=== PATIENT | male | born 1955 | race Caucasian/White ===

== ENCOUNTER 2021-06-25 06:25 | Outpatient (CLI) | payer OTHER, SELFPAY ==
--- NOTE | 2021-06-25 06:41 | USCV_ITS ---
Ede Desai Age: 66 Gender: M : 1955 Exam Date: 06/25/2021 07:29 Ordering Phys: Khoa Parker MD ([email or web address]) Technologist: EDIE [place] [facility] [place]: COPD + VERY SOB W/ INTERMITTENT CHEST PAIN X6 MONTHS NO HX OF CARDIAC INTERVENTION BP: / HR: 57 Rhythm: Sinus Technical Quality: Adequate MEASUREMENTS (Male / Female) Normal Values 2D ECHO LV Diastolic Diameter PLAX 3.5 cm 4.2 - 5.9 / 3.9 - 5.3 cm LV Systolic Diameter PLAX 2.4 cm IVS Diastolic Thickness 1.1 cm 0.6 - 1.0 / 0.6 - 0.9 cm IVS Systolic Thickness 1.2 cm LVPW Diastolic Thickness 1.3 cm 0.6 - 1.0 / 0.6 - 0.9 cm LVPW Systolic Thickness 1.5 cm LVOT Diameter 1.9 cm LV Ejection Fraction 2D Teich 60.3 % LV Ejection Fraction MOD 2C 62.0 % LV Ejection Fraction 2C AL 62.4 % LA Diameter 3.7 cm LA Width 2.5 cm LA Height 4.4 cm RA Width 3.1 cm RA Height 5.1 cm Aorta at Sinotubular Diameter 3.1 cm M-MODE Aortic Annulus Diameter 3.4 cm LA Ao Ratio MM 1.4 MV E Point Septal Separation 0.6 cm DOPPLER AV Peak Velocity 114.0 cm/s LVOT Peak Velocity 91.0 cm/s AV Area Cont Eq vti 2.6 cm squared AV Area Cont Eq pk 2.2 cm squared MV Peak Velocity 136.0 cm/s MV Area PHT 2.5 cm squared Mitral E to A Ratio 0.6 MV E' Velocity 38.2 cm/s Mitral E to MV E' Ratio 12.0 Mitral E to LV E' Lateral Ratio 9.4 Mitral E to LV E' Septal Ratio 16.9 TR Peak Velocity 267.0 cm/s TR Peak Gradient 28.5 mmHg Right Atrial Pressure 5.0 mmHg Pulmonary Artery Systolic Pressu 33.5 mmHg PV Peak Velocity 87.0 cm/s RV Acceleration Time 0.1 s RV Ejection Time 0.4 s RV AcT/ET 0.2 FINDINGS Left Ventricle Normal left ventricular cavity size. Normal left ventricular systolic function. No regional wall motion abnormalities. Left ventricular ejection fraction is estimated at 60 %. Grade I/IV diastolic dysfunction (abnormal relaxation filling pattern), normal to mildly elevated filling pressures. Right Ventricle The right ventricle is normal in size and function. Right Atrium The right atrium is normal in size. Left Atrium The left atrium is normal in size. Mitral Valve Moderately thickened mitral valve. No mitral valve stenosis. Mild mitral valve regurgitation. Aortic Valve Moderate aortic valve calcification. No aortic valve stenosis. Trace aortic valve regurgitation. Tricuspid Valve Mild tricuspid valve regurgitation. Pulmonic Valve Structurally normal pulmonic valve without significant stenosis. There is no pulmonic regurgitation. Pericardium Normal pericardium without effusion. Aorta Normal ascending aorta dimension. CONCLUSIONS 1-Normal left ventricular cavity size. Normal left ventricular systolic function. No regional wall motion abnormalities. Left ventricular ejection fraction is estimated at 60 %. Grade I/IV diastolic dysfunction (abnormal relaxation filling pattern), normal to mildly elevated filling pressures. 2-Moderate aortic valve calcification. No aortic valve stenosis. Trace aortic valve regurgitation. 3-Moderately thickened mitral valve. No mitral valve stenosis. Mild mitral valve regurgitation. 4-There is no pericardial effusion. 5-Pulmonary artery systolic pressure is within normal limits. 6-Right atrial pressure is around 5 mm of mercury. 7-There are no prior echocardiogram studies to compare. Khoa Parker MD (Electronically Signed) Final Date: 25 June 2021 18:08 S
[2021-06-25 07:04] VITALS: BMI 25.8
--- NOTE | 2021-06-25 07:05 | ECG_ITS ---
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 The perfusion scan will be documented separately. DATA: Baseline heart rate was 58 beats per minute. Baseline blood pressure was 131/80 millimeters of mercury. Target heart rate was 152. Maximum heart rate achieved was 76. which was 50 % of the predicted target heart rate. Maximum blood pressure was 141/81 millimeters of mercury. The reason for ending the test was completion of the protocol. The patient did not experience any symptoms. ELECTROCARDIOGRAM: BASELINE: Sinus rhythm. Normal axis. Otherwise, no ST-T changes suggestive of ischemia noted. No arrhythmia noted. EXERCISE: After Lexiscan injection, no ST-T changes suggestive of ischemic noted. No arrhythmia noted. CONCLUSION: Please note due to baseline abnormality of the EKG specificity and sensitivity of the EKG portion of LexiScan MIBI stress test will be low 1. EKG not suggestive of ischemia 2. Lexiscan injection unremarkable. 3. Perfusion scan will be documented separately. Electronically Signed On 06-25-2021 20:21:28 SURG NURSE by KHOA PARKER [id number]
--- NOTE | 2021-06-25 07:05 | NMCV_ITS ---
NM luis perf SPECT r/s* [id number] Ede Desai Age: 66 Gender: M : 1955 Exam Date: 06/25/2021 08:07 Ordering Phys: Khoa Parker MD ([email or web address]) Technologist: KATEY Abdullahi Exam Location: [facility] [address] Indications: CHEST PAIN STRESS TEST Please see separate stress test report in [facility] for full findings IMAGE PROTOCOL Rest/Stress 1 Lexiscan Day Radiopharmaceutical Dose (mCi) Administration Site Administered by Rest: Tc-99m 10.6 IV KATEY Li Sestamibi Stress:Tc-99m 32.9 IV KATEY Li Sestamibi Rest: 25-Jun-2021 60 Discovery 630 Stress: 25-Jun-2021 30 Discovery 630 0.4mg Lexiscan. Images obtained in supine and prone position. SPECT RESULTS Technical Quality: Excellent Raw Data Analysis: Normal Image Corrections: No attenuation or motion correction applied Summed Stress Score: 1 Summed Rest Score: 2 Summed Difference Score: 0 PERFUSION FINDINGS SPECT images demonstrate homogeneous tracer distribution throughout the myocardium. FUNCTIONAL RESULTS (calculated via Gated SPECT) Stress Image LV EF (%): 69 Stress EDV (mL):74 TID: 1.08 Stress ESV (mL):23 Rest Image LV EF (%): 69 FUNCTIONAL FINDINGS: There is normal left ventricular systolic function. IMPRESSIONS Myocardial perfusion imaging is normal. EKG segment will be documented separately. Khoa Parker MD (Electronically Signed) Final Date: 25 June 2021 17:56 S
[2021-06-25] MEDS: regadenoson 0.4 Mg/5 ml Syringe IVP (09:03)
[2021-06-25 09:17] VITALS: BP 132/72; PULSE 67
== END 2021-06-25 06:26 | disposition home or self-care (01) ==
PROVIDERS: PCP Family Medicine; Visit Provider Internal Medicine Cardiovascular Disease
DX: R07.9 Chest pain, unspecified (principal); I08.0 Rheumatic disorders of both mitral and aortic valves
CPT/HCPCS: 78452; 93017; 93306; A9500; J2785

== ENCOUNTER → 2021-12-11 10:07 | Outpatient (BNVA) | payer OTHER, SELFPAY | PROVIDERS: PCP Family Medicine; Visit Provider Internal Medicine Critical Care Medicine | DX: J44.9 Chronic obstructive pulmonary disease, unspecified (principal); J96.11 Chronic respiratory failure with hypoxia; J98.4 Other disorders of lung; Z99.81 Dependence on supplemental oxygen | CPT/HCPCS: 99204 ==

== ENCOUNTER 2021-12-15 06:20 | Day surgery (SDC) | payer OTHER, SELFPAY ==
[2021-12-11 14:28] VITALS: BMI 25.0
[2021-12-15] VITALS (8 sets, daily range): BP systolic 112–144; BP diastolic 51–74; PULSE 50–64; RESP 16–20; TEMP 36.1–36.2; O2SAT 92–100
--- NOTE | 2021-12-15 | CT_ITS ---
Guided Bronchoscopy Planning CT images; total exam DLP: 1044.58 mGy-cm MTDD
--- NOTE | 2021-12-15 07:09 | ECG_ITS ---
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 Measurements Intervals [place] Rate: 51 P: 11 NC: 159 QRS: 35 QRSD: 89 T: 29 QT: 428 QTc: 397 Interpretive Statements SINUS BRADYCARDIA No previous ECG available for comparison Electronically Signed On 12-15-2021 17:35:00 CDT by Parmjit Webster M.D. [id number]
[2021-12-15] MEDS: sodium chloride 0.9% 1,000 ML 30 ML IV (07:19)
--- NOTE | 2021-12-15 08:33 | W.PM.OPSUD ---
Surgery/Procedure H&P Update DATE OF PROCEDURE: December 15, 2021 DATE H&P PERFORMED: 12/11/21 CHANGES TO PREVIOUS DOCUMENTATION: None PREOP DIAGNOSIS: Suspected lung cancer PLANNED PROCEDURE: Bronchoscopy with inspection of the airway, possible endobronchial biopsy, bronchoalveolar lavage, additional bronchoscopy guided transbronchial biopsies of the right upper lobe lung mass, fine-needle aspiration, endobronchial sound guided transbronchial needle aspiration of lymph nodes and control of bleeding. Operation Date: 12/15/21 08:20 Proposed Procedures p Navigational bronch, ebus, 44780, 46138, 81579, 45487, 52704,R91.1(Not Applicable) - Carla Lemos MD s Bronchoscopy(Not Applicable) - Carla Lemos MD
--- NOTE | 2021-12-15 08:38 | P.ANESASSM_ITS ---
Pre-Anesthetic Assessment Height/Weight: Height 1.7 m Weight 72.575 kg Temp Pulse Resp BP Pulse Ox 97.1 F L 64 20 H 112/74 98 12/15/21 06:56 12/15/21 06:56 12/15/21 06:56 12/15/21 06:56 12/15/21 06:56 Preop Diagnosis: Suspected lung cancer Operation Date: 12/15/21 08:20 Proposed Procedures p Navigational bronch, ebus, 04849, 12327, 54740, 25233, 07336,R91.1(Not Applicable) - Carla Lemos MD s Bronchoscopy(Not Applicable) - Carla Lemos MD Familial anesthetic complications: none Was Beta Owen taken within 24 hours: N/A Was Clonidine taken within 24 hours: N/A Last intake: Intake Last Liquid Date 12/14/21 Last Liquid Time 20:30 Last Solid Date 12/14/21 Last Solid Time 18:00 Social No alcohol and No tobacco Exam alert, oriented x 3, clear to auscultation bilaterally and regular rate & rhythm Airway Submandibular: Other (Less than 2 finger ) Cervical ROM: Other (Limited extension ) Mallampati: Class III Dentition: chipped Pulmonary Chronic Obstructive Pulmonary Disease Chronic respiratory failure CV/HEM Hypertension METS < 4 Denies hx of CP, CAD Nuc Med 06/27 ?IMPRESSIONS ?Myocardial perfusion imaging is normal.? EKG segment will be documented ?separately. Stress Test 06/25/21 CONCLUSION: Please note due to baseline abnormality of the EKG specificity and sensitivity of the EKG portion of LexiScan MIBI stress test will be low 1.? EKG not suggestive of ischemia 2.? Lexiscan injection unremarkable. 3.? Perfusion scan will be documented separately. Electronically Signed On 06-25-2021 20:21:28 FEE CLERK by FIDECNIO HEBERT [id number] [id number] 06/25/21 CONCLUSIONS ?1-Normal left ventricular cavity size. Normal left ventricular ?systolic function. No regional wall motion abnormalities. Left ?ventricular ejection fraction is estimated at 60 %. Grade I/IV ?diastolic dysfunction (abnormal relaxation filling pattern), ?normal to mildly elevated filling pressures. ?2-Moderate aortic valve calcification. No aortic valve stenosis. ?Trace aortic valve regurgitation. ?3-Moderately thickened mitral valve. No mitral valve stenosis. ?Mild mitral valve regurgitation. ?4-There is no pericardial effusion. ?5-Pulmonary artery systolic pressure is within normal limits. ?6-Right atrial pressure is around 5 mm of mercury. ?7-There are no prior echocardiogram studies to compare. None reported Hepatic None reported GI Gastroesophageal Reflux Disease (Well controlled ) Metabolic Pre diabetic Musc/skel Osteoarthritis/DJD Neuropsych Cerebrovascular Accident (Persistent deficit ) Anesthetic Plan ASA status: 3 Anesthesia: Anesthesia Evaluation and General Other: We discussed risk and benefits of general anesthesia including PONV, sore throat (sometimes severe), corneal abrasion, positioning and peripheral nerve injuries, life threatening allergic reaction, post operative ICU admission requiring prolonged intubation, aspiration, stroke, heart attack, , and rare incide nces of recall. Patient consents to proceed with general anesthesia. Risk of > 500 ml blood loss (7ml/kg in children): No Medications/Allergies Home Medications Medication Instructions Recorded Confirmed Last Taken Type albuterol sulfate 90 mcg/actuation 2 puff INHALATION Q6H PRN 04/29/21 12/11/21 0 12/14/21 History aerosol inhaler aspirin 81 mg tablet,delayed 81 mg PO DAILY 04/29/21 12/11/21 12/14/21 History release (Adult Low Dose Aspirin) atorvastatin 80 mg tablet 80 mg PO DAILY 04/29/21 12/11/21 12/14/21 History cholecalciferol (vitamin D3) 25 25 mcg PO DAILY 04/29/21 12/11/21 12/14/21 History mcg (1,000 unit) capsule fluticasone 100 mcg-salmeterol 50 1 inh INHALATION BID 04/29/21 12/11/21 12/14/21 History mcg/dose blistr powdr for inhalation glucosamine-chondroitin 500 mg-400 1 cap PO DAILY 04/29/21 12/11/21 Unknown History mg capsule isosorbide mononitrate 30 mg 15 mg PO BID #90 tab 04/29/21 12/15/21 12/15/21 Rx tablet,extended release 24 hr lisinopril 20 mg tablet 10 mg PO DAILY tab 04/29/21 12/11/21 12/14/21 History magnesium oxide 250 mg PO DAILY 04/29/21 12/11/2112/14/22 History nitroglycerin 0.4 mg sublingual 0.4 mg SUBLINGUAL Q5M PRN #25 tab 04/29/21 12/11/21 Unknown Rx tablet (Nitrostat) tiotropium bromide 2.5 2 inh INHALATION QAM 04/29/21 12/11/21 12/14/21 History mcg/actuation mist for inhalation zinc 50 mg tablet 50 mg PO DAILY 04/29/21 12/11/21 Unknown History trazodone 100 mg tablet 100 mg PO DAILY PRN tab 12/11/21 12/11/21 12/14/21 History albuterol sulfate 2.5 mg (3 mL) INHALATION QID PRN 12/14/21 12/14/21 12/14/21 Rx #90 ml Allergies Allergy/AdvReac Type Severity Reaction Status Date / Time No Known Allergies Allergy Verified 12/11/21 12:31 Current Medications Generic Name Dose Route Start Last Admin Trade Name Freq PRN Reason Stop Dose Admin Sodium Chloride 1,000 mls @ 30 mls/hr 12/15/21 06:45 12/15/21 07:19 Sodium Chloride 0.9% IV 12/16/21 06:44 30 mls/hr .Q24H VICKI Administration PFSH Anesthesia Medical History COPD (chronic obstructive pulmonary disease) History of CVA (cerebrovascular accident) (~2013) HTN (hypertension) Hyperlipidemia Family History Grandfather Stroke Social History Smoking and tobacco status: former smoker Quit status (tobacco): has quit using tobacco Year quit tobacco: 2017 Former quit date comment: 1.5 ppd X 48 years Data Anesthesia Cardiac Studies: Echocardiogram 06/25/21 Sestamibi Stress Test (Cardiology) 06/25/21
[2021-12-15] MEDS: lidocaine 1% INJ 20 mL 3 ML XX (09:15)
--- NOTE | 2021-12-15 10:25 | P.OP_ITS ---
Operative Report Date of procedure: December 15, 2021 Pre-op diagnosis: Preop Diagnosis Suspected lung cancer Post-op diagnosis: Same Brief History: This is a 66-year-old gentleman with a right upper lobe cavitary lesion and PET positive mediastinal hilar lymphadenopathy in addition to right upper lobe lesion is coming in for bronchoscopic evaluation. Procedure: Name of the procedure: Bronchoscopy with inspection of the airway, bronchoa lveolar lavage, navigational bronchoscopy guided transbronchial biopsies, endobronchial ultrasound-guided transbronchial needle aspiration of lymph nodes and control of bleeding. Indication: PET positive right upper lobe cavitary lesion administering hilar lymphadenopathy. Anesthesia: General anesthesia. Local anesthesia: The melida in the right and left mainstem bronchi were anesthetized with 1% lidocaine, 3 mL. Description of the procedure: The procedure was explained to the patient and the consent was obtained. The patient was brought to the OR. The patient underwent endotracheal intubation for general anesthesia. Following induction of general anesthesia, the bronchoscope was advanced through the ET tube. The lower trachea appeared to be normal. The melida was sharp. The melida, the right and left mainstem bronchi are anesthetized with 1% lidocaine. In a systematic manner bilateral bronchial tree was then examined. The bronchoscope was advanced into the left mainstem bronchus. The left upper lobe, lingula and left lower lobe bronchi were examined up to the third subsegmental level and no abnormalities were identified. The bronchoscope was then introduced into the right mainstem bronchus. The right upper lobe, right middle lobe and right lower lobe bronchi were examined up to the third subsegmental level and no abnormalities were identified. There was mild airway erythema and mucus throughout the airways. Bronchoalveolar lavage was performed from the apical segment of the right upper lobe. 60 cc of fluid was instilled, fluid return was 35 mL. The endobronchial ultrasound was introduced through the ET tube. Mild lymphadenopathy was noted in the subcarinal, right hilar area. Fine-needle aspiration was obtained from station 7 and 10 R. Multiple samples were obtained. The bronchoscope was reintroduced. Transbronchial biopsies were performed from the right lower lobe with navigational guidance. Samples: 1. Bronchoalveolar lavage specimen was sent for Gram stain and culture, fungal stain and culture, AFB stain and culture, histoplasma antigen, Aspergillus galactomannan. 2. The transbronchial biopsies are sent for histopathology. 4. The transbronchial needle aspiration of the aforementioned lymph node groups were sent for histopathology Complications: There was no immediate complications. Chest x-ray: Pending
--- NOTE | 2021-12-15 10:42 | XRR_ITS ---
PROCEDURE INFORMATION: Exam: XR Chest Exam date and time: 12/15/2021 10:43 AM Age: 66 years old Clinical indication: Condition or disease; Other: Post bronch; Prior surgery; Patient HX: Transbronchial biopsies were performed from the right lower lobe with navigational guidance. ; Additional info: Post bronch, pet positive rul lesion TECHNIQUE: Imaging protocol: Radiologic exam of the chest. Views: 1 view. COMPARISON: CT chest [facility] [id number] 09/01/2021 10:38 AM FINDINGS: Lungs: The bilateral pulmonary emphysema with upper lobe bullous disease. There is poorly defined right apical opacity consistent with nodularity seen in the right upper lobe on recent chest x-ray. There is chronic fibrosis in the left base. Pleural spaces: Unremarkable. No pleural effusion. No pneumothorax. Heart/Mediastinum: Unremarkable. No cardiomegaly. Bones/joints: Unremarkable. XR/XR chest 1V portable [id number] IMPRESSION: 1. No pneumothorax. 2. Pulmonary emphysema with right upper lobe opacity consistent with the nodularity seen on recent CT scan.
--- NOTE | 2021-12-15 10:58 | ANE.PACU2 ---
Inpatient post-anesthesia follow up: Airway intact: Yes Vital signs: Temperature 97.1 F Pulse Rate 50 Respiratory Rate 18 Blood Pressure 143/63 Pulse Oximetry 94 Oxygen Delivery Me thod Room Air Oxygen Flow Rate 10 Fraction of Inspir ed Oxygen Hydration adequate: Yes Nausea and vomiting: No Pain level: 1 Mental status: Baseline
--- NOTE | 2021-12-15 15:37 | ANE.PACU2 ---
Inpatient post-anesthesia follow up: Airway intact: Yes Vital signs: Temperature 97.1 F Pulse Rate 50 Respiratory Rate 18 Blood Pressure 140/67 Pulse Oximetry 92 Oxygen Delivery Me thod Room Air Oxygen Flow Rate 10 Fraction of Inspir ed Oxygen Hydration adequate: Yes Nausea and vomiting: No Pain level: 2 Mental status: Baseline
[2021-12-15 20:23] LABS: Cyto Order Verification Order Verified
== END 2021-12-15 11:08 | disposition home or self-care (01) ==
PROVIDERS: PCP Family Medicine; Visit Provider Internal Medicine Critical Care Medicine
PROC: 0BJ08ZZ Inspection of Tracheobronchial Tree, Via Natural or Artificial Opening Endoscopic (ICD-10-PCS; CPT 31622; principal; 2021-12-15 08:10)
PROC: 0BJ08ZZ Inspection of Tracheobronchial Tree, Via Natural or Artificial Opening Endoscopic (ICD-10-PCS; CPT 31622; 2021-12-15 08:10)
PROC: BB4BZZZ Ultrasonography of Pleura (ICD-10-PCS; 2021-12-15 08:10)
DX: R91.8 Other nonspecific abnormal finding of lung field (principal); J44.9 Chronic obstructive pulmonary disease, unspecified; I10 Essential (primary) hypertension; K21.9 Gastro-esophageal reflux disease without esophagitis; Z86.73 Personal history of transient ischemic attack (TIA), and cerebral infarction without residual deficits; Z79.82 Long term (current) use of aspirin; E78.5 Hyperlipidemia, unspecified; Z87.891 Personal history of nicotine dependence
CPT/HCPCS: 31624; 31627; 31628; 31629; 31652; 71045; 77011; 80503; 87015; 87070; 87102; 87116; 87205; 87206; 87305; 87385; 87801; 88108; 88305; 93005; J0330; J1100; J2405; J2704; J2710; J3010; J3490; J7030

== ENCOUNTER 2022-02-15 08:31 | Outpatient (CLI) | payer OTHER, SELFPAY ==
--- NOTE | 2022-02-15 08:45 | CT_ITS ---
WS: [id number] CT CHEST TECHNIQUE: Noncontrast CT of the chest with coronal and sagittal reformatted images. CLINICAL INFORMATION: F/u COMPARISON: PET CT November 07, 2021 CT chest September 01, 2021 DLP: 702.[address] scans at [facility] use at least one of these dose optimization techniques: automated e xposure control; mA and/or kV adjustment per patient size (includes targeted exams where dose is matc hed to clinical indication); or iterative reconstruction. FINDINGS: Previously described RIGHT apical cavitary lung mass is improved since November 07, 2021. Small amount of residual consolidation RIGHT lung apex posterolaterally. No new or progressed anterior mediastinal o r hilar lymphadenopathy. A few prominent peribronchial and RIGHT hilar lymph nodes are unchanged. No axillary lymphadenopathy. Aortic calcification. Coronary calcification. No axillary lymphadenopathy. Adrenal glands are normal. Lobulated LEFT renal cyst measuring 4.8 x 4.4 CM. Small esophageal hiatal hernia. Mild thoracic kyphosis. Anterior hypertrophic changes thoracic spine. Advanced chronic emphys ematous changes unchanged from previous. CT/CT chest wo con [id number] IMPRESSION: 1. Previously described cavitary mass in the RIGHT upper lobe has improved com pared to the prior PET/CT November 07, 2021. Small amount of residual consolidation in the RIGHT lung apex posteriorly and laterally. 2. No progressed mediastinal or hilar lymphadenopathy. A few prominent RIGHT h ilar and peribronchial lymph nodes unchanged. 3. Advanced chronic emphysematous changes. 4. No other significant changes.
== END 2022-02-15 08:32 | disposition home or self-care (01) ==
LOC: RAD 08:33
PROVIDERS: PCP Family Medicine; Visit Provider Internal Medicine Critical Care Medicine
DX: J98.4 Other disorders of lung (principal); R91.1 Solitary pulmonary nodule; J43.9 Emphysema, unspecified
CPT/HCPCS: 71250

== ENCOUNTER → 2022-02-18 08:42 | Outpatient (BNVA) | payer OTHER, SELFPAY | PROVIDERS: PCP Family Medicine; Visit Provider Internal Medicine Critical Care Medicine | DX: R06.02 Shortness of breath (principal); E78.5 Hyperlipidemia, unspecified; J44.9 Chronic obstructive pulmonary disease, unspecified; J98.4 Other disorders of lung; Z87.891 Personal history of nicotine dependence; Z99.81 Dependence on supplemental oxygen | CPT/HCPCS: 99214 ==

== ENCOUNTER → 2022-05-12 13:07 | Outpatient (BNVA) | payer OTHER, SELFPAY | PROVIDERS: PCP Family Medicine; Visit Provider Internal Medicine Cardiovascular Disease | DX: R00.2 Palpitations (principal); R55 Syncope and collapse | CPT/HCPCS: 93225 ==

== ENCOUNTER → 2022-10-18 08:17 | Outpatient (BNVA) | payer OTHER, SELFPAY | PROVIDERS: PCP Family Medicine; Visit Provider Internal Medicine Pulmonary Disease | DX: J98.4 Other disorders of lung (principal); J96.11 Chronic respiratory failure with hypoxia; R25.1 Tremor, unspecified; Z87.891 Personal history of nicotine dependence; Z99.81 Dependence on supplemental oxygen | CPT/HCPCS: 99214 ==

== ENCOUNTER 2022-11-04 08:55 | Outpatient (CLI) | payer OTHER, SELFPAY ==
[2022-11-04 09:20] VITALS: PULSE 74; RESP 18; O2SAT 96
[2022-11-04] MEDS: albuterol 2.5 mg/3 mL Neb INHALATION (09:20)
[2022-11-04 09:25] VITALS: PULSE 79
== END 2022-11-04 08:56 | disposition home or self-care (01) ==
PROVIDERS: PCP Family Medicine; Visit Provider Internal Medicine Pulmonary Disease
DX: R06.02 Shortness of breath (principal); F17.210 Nicotine dependence, cigarettes, uncomplicated; R94.2 Abnormal results of pulmonary function studies
CPT/HCPCS: 94060; 94618; 94726; 94729; J7613

== ENCOUNTER 2023-01-10 07:46 | Outpatient (CLI) | payer OTHER, SELFPAY ==
--- NOTE | 2023-01-10 09:30 | CT_ITS ---
WS: [id number] CT chest wo con [id number] HISTORY: Cavitary lung lesion TECHNIQUE: Axial imaging performed through the thorax. Coronal and sagittal reformats are submitted. All CT scans at [facility] use at least one of these dose optimization techniques: automated exposure control; mA and/or kV adjustment per patient size (includes targeted exams where dose is mat ched to clinical indication); or iterative reconstruction. CONTRAST: None DLP: 211.96 mGy.cm COMPARISON: 02/15/2022 and 08/12/2021 Lungs and central airway: Severe chronic emphysema. Bullous and bleb disease bilaterally. Mild volume loss in the RIGHT upper thorax. Previously described can't cavitary lesion in the RIGHT upper lobe h as significantly improved. There is now residual consolidation but also volume loss in the RIGHT uppe r lobe. There is mild pleural thickening. No new or increasing mass or nodule. Pleura: Normal. No pleural effusion. Heart and pericardium: Normal size heart with no pericardial effusion. Mediastinum and jillian: Mediastinal and hilar lymph nodes are stable. No new or increasing size of lymp h nodes. These nodules were PET/CT positive on 11/07/2021. Have been reactive from inflammatory infecti ous process in the RIGHT upper lobe. Vessels: Mild atherosclerosis aorta and great vessels. No aneurysm. Pulmonary artery size is equal to the aorta. Scattered coronary artery calcifications. Chest wall and lower neck: No soft tissue masses. Upper abdomen: No adrenal mass. Low-attenuation masses involving the LEFT kidney are reidentified. An alyzed the largest measuring 5.1 x 4.3 cm. As visualized is are stable and thought to be cysts. Osseous structures: Mild increase in thoracic kyphosis. CT/CT chest wo con [id number] IMPRESSION: 1. Pleural parenchymal thickening in the RIGHT upper lobe corresponds to the s ite of the prior cavitary lesion. Continued improvement in the areas of consoli dation. No cavitary lesion remains. No new nodule. Please note this consolidati on and mediastinal lymph nodes were PET/CT positive on 11/07/2021. 2. Marked emphysema. 3. Mild atherosclerosis aorta. 4. Stable RIGHT hilar mediastinal lymph nodes.
== END 2023-01-10 07:47 | disposition home or self-care (01) ==
PROVIDERS: PCP Family Medicine; Visit Provider Internal Medicine Pulmonary Disease
DX: J98.4 Other disorders of lung (principal); J92.9 Pleural plaque without asbestos; J43.9 Emphysema, unspecified; I70.0 Atherosclerosis of aorta
CPT/HCPCS: 71250

== ENCOUNTER → 2023-01-17 08:08 | Outpatient (BNVA) | payer OTHER, SELFPAY | PROVIDERS: PCP Family Medicine; Visit Provider Internal Medicine Pulmonary Disease | DX: J98.4 Other disorders of lung (principal); J44.9 Chronic obstructive pulmonary disease, unspecified; J96.11 Chronic respiratory failure with hypoxia; R25.1 Tremor, unspecified; R42 Dizziness and giddiness; Z87.891 Personal history of nicotine dependence; Z99.81 Dependence on supplemental oxygen | CPT/HCPCS: 99214 ==

== ENCOUNTER 2023-01-28 09:26 | Outpatient (CLI) | payer OTHER, SELFPAY ==
--- NOTE | 2023-01-28 10:15 | USCV_ITS ---
Ede Desai Age: 67 Gender: M : 1955 Exam Date: 01/28/2023 09:41 Ordering Phys: Cipriano Piper MD Technologist: IVÁN [place]am Location[place] [facility] [place] Indication: DIZZINESS Risk Factors: Previous Vascular Surgery: Right Brachial BP: / Left Brachial BP: / Right Left Velocity (cm/s) Spectral Plaque Velocity (cm/s) Spectral Plaque Syst/Diast Broadening Syst/Diast Broadening 72.20/ 14.80 Prox CCA 71.00 / 16.90 59.00/ 15.50 Mid CCA 71.80 / 17.90 63.70/ 17.90 Distal CCA 59.00 / 17.90 80.60/ 22.50 Prox ICA 56.40 / 16.90 66.80/ 21.80 Mid ICA 66.40 / 20.80 67.50/ 22.50 Distal ICA 71.10 / 22.70 62.10 ECA 69.80 1.12 ICA/CCA 0.99 Antegrade Vertebral Antegrade 48.20/ 10.10 cm/s 26.70/ 8.50 cm/s Tri Subclavian Tri 74.20 84.70 CONCLUSIONS Right ICA stenosis <50%. Mild calcified atheromatous plaque right carotid bulb/ICA. Left ICA stenosis <50%. Mild calcified atheromatous plaque left carotid bulb/ICA. Intimal thickening in the common carotid arteries and internal carotid arteries bilaterally. Normal antegrade Doppler flow noted in the right vertebral artery. Normal antegrade Doppler flow noted in the left vertebral artery. Shiraz Soto MD (Electronically Signed) Final Date: 28 January 2023 10:58 S
== END 2023-01-28 09:27 | disposition home or self-care (01) ==
PROVIDERS: PCP Family Medicine; Visit Provider Internal Medicine Pulmonary Disease
DX: R42 Dizziness and giddiness (principal); I77.89 Other specified disorders of arteries and arterioles
CPT/HCPCS: 93880

== ENCOUNTER → 2023-04-07 09:50 | Outpatient (BNVA) | payer OTHER, SELFPAY | PROVIDERS: PCP Family Medicine; Referring Provider Internal Medicine Pulmonary Disease; Visit Provider Psychiatry & Neurology Neurology | DX: G20.C Parkinsonism, unspecified (principal) | CPT/HCPCS: 99203 ==

== ENCOUNTER 2023-05-10 08:10 | Outpatient (CLI) | payer OTHER, SELFPAY ==
--- NOTE | 2023-05-10 08:45 | MR_ITS ---
WS: [id number] MRI HEAD WITHOUT CONTRAST TECHNIQUE: Sagittal T1, T2 axial, T2 axial FLAIR, axial and coronal T1 images, axial susceptibility w eighted imaging, axial diffusion weighted images, and coronal T2 images were obtained. CLINICAL INFORMATION: R42 - Dizziness and giddiness COMPARISON: Outside MRI 2014 FINDINGS: No evidence of restricted diffusion of disease acute ischemia. Ventricular system and basal cisterns are patent. Moderate small vessel changes with moderate parenchymal volume loss. This is progressed c ompared to 2014. Small vessel changes in the midbrain and jan. Normal posterior fossa. Normal vascul ar flow voids at the skull base. No extra-axial fluid collections. No evidence of mass or mass effect . Paranasal sinuses are well aerated. Mild mucosal thickening LEFT maxillary sinus. Mastoid air cells are well aerated. No hemosiderin on the susceptibly weighted images. Normal optic chiasm and pituitary infundibulum. Mo derate symmetric atrophy temporal lobes and hippocampal formations. IMPRESSION: 1. No evidence of restricted diffusion to suggest acute ischemia. 2. Moderate small vessel changes with moderate parenchymal volume loss progressed since 2013. 3. Small vessel changes in the midbrain and jan. 4. No hemosiderin on the susceptibly weighted images. 5. Moderate symmetric atrophy temporal lobes and hippocampal formations.
== END 2023-05-10 08:11 | disposition home or self-care (01) ==
LOC: RAD 08:10
PROVIDERS: PCP Family Medicine; Visit Provider Psychiatry & Neurology Neurology
DX: R42 Dizziness and giddiness (principal); G20.A1 Parkinson's disease without dyskinesia, without mention of fluctuations; I63.9 Cerebral infarction, unspecified
CPT/HCPCS: 70551

== ENCOUNTER → 2023-05-19 09:15 | Outpatient (BNVA) | payer OTHER, SELFPAY | PROVIDERS: PCP Family Medicine; Visit Provider Internal Medicine Pulmonary Disease | DX: J98.4 Other disorders of lung (principal); J43.2 Centrilobular emphysema; J96.11 Chronic respiratory failure with hypoxia; R25.1 Tremor, unspecified; R42 Dizziness and giddiness; Z87.891 Personal history of nicotine dependence | CPT/HCPCS: 99214 ==

== ENCOUNTER → 2023-08-03 10:06 | Outpatient (BNVA) | payer OTHER, SELFPAY | PROVIDERS: PCP Family Medicine; Visit Provider Psychiatry & Neurology Neurology | DX: G20.C Parkinsonism, unspecified (principal); Z86.73 Personal history of transient ischemic attack (TIA), and cerebral infarction without residual deficits | CPT/HCPCS: 99212 ==

== ENCOUNTER → 2023-08-30 09:29 | Outpatient (BNVA) | payer OTHER, SELFPAY | PROVIDERS: PCP Family Medicine; Visit Provider Nurse Practitioner Family | DX: I10 Essential (primary) hypertension (principal); Z87.891 Personal history of nicotine dependence | CPT/HCPCS: 99213 ==

== ENCOUNTER → 2023-10-11 09:00 | Outpatient (BNVA) | payer OTHER, SELFPAY | PROVIDERS: PCP Family Medicine; Visit Provider Psychiatry & Neurology Neurology | DX: G20.A1 Parkinson's disease without dyskinesia, without mention of fluctuations (principal) | CPT/HCPCS: 99212 ==

== ENCOUNTER → 2023-11-17 09:19 | Outpatient (BNVA) | payer OTHER, SELFPAY | PROVIDERS: PCP Family Medicine; Visit Provider Internal Medicine Pulmonary Disease | DX: J98.4 Other disorders of lung (principal); J43.2 Centrilobular emphysema; J96.11 Chronic respiratory failure with hypoxia; R25.1 Tremor, unspecified; R42 Dizziness and giddiness | CPT/HCPCS: 99214 ==

== ENCOUNTER 2024-01-12 10:25 | Outpatient (CLI) | payer OTHER, SELFPAY ==
--- NOTE | 2024-01-12 12:00 | CT_ITS ---
WS: [id number] CT chest wo con [id number] HISTORY: follow up TECHNIQUE: Axial imaging performed through the thorax. Coronal and sagittal reformats are submitted. All CT scans at [facility] use at least one of these dose optimization techniques: automated exposure control; mA and/or kV adjustment per patient size (includes targeted exams where dose is mat ched to clinical indication); or iterative reconstruction. CONTRAST: Omnipaque 350; 100 mL IV. DLP: 358.65 mGy.cm COMPARISON: 01/10/2023, 02/15/2022 Lungs and central airway: Severe emphysema. Marked bullous involvement RIGHT upper lobe. Cavitary les ion previously described in the RIGHT upper lobe has resolved. There is now an area of scarring and f ibrosis. No residual mass. No recurrence of the cavitation. No pulmonary mass or pneumonia. Pleura: Normal. No pleural effusion. Heart and pericardium: Normal size heart with no pericardial effusion. Mediastinum and jillian: No adenopathy on this unenhanced exam. Small mediastinal and hilar lymph nodes. Vessels: Mild atherosclerosis aorta. Mildly dilated pulmonary artery. Chest wall and lower neck: No soft tissue masses. Upper abdomen: No adrenal mass. Osseous structures: Increase in thoracic kyphosis. CT/CT chest wo con [id number] IMPRESSION: 1. Pleural parenchymal scarring and fibrosis RIGHT upper lobe at the area of t he previously described cavitary lesion. No recurrent mass or suspicious findin g. 2. Marked emphysema. Severe bullous emphysema LEFT upper lobe. 3. No mediastinal or hilar adenopathy identified on this unenhanced exam. 4. No adrenal mass.
== END 2024-01-12 10:26 | disposition home or self-care (01) ==
LOC: RAD 10:26
PROVIDERS: PCP Family Medicine; Visit Provider Internal Medicine Pulmonary Disease
DX: J84.10 Pulmonary fibrosis, unspecified (principal); J92.9 Pleural plaque without asbestos; J43.9 Emphysema, unspecified; M40.204 Unspecified kyphosis, thoracic region
CPT/HCPCS: 71250

== ENCOUNTER → 2024-01-19 14:45 | Outpatient (BNVA) | payer OTHER, SELFPAY | PROVIDERS: PCP Family Medicine; Visit Provider Internal Medicine Critical Care Medicine | DX: R06.09 Other forms of dyspnea (principal); R05.3 Chronic cough; J43.2 Centrilobular emphysema; R93.89 Abnormal findings on diagnostic imaging of other specified body structures; J98.4 Other disorders of lung; Z99.81 Dependence on supplemental oxygen; Z71.89 Other specified counseling | CPT/HCPCS: 99213 ==

== ENCOUNTER → 2024-03-01 10:46 | Outpatient (BNVA) | payer OTHER, SELFPAY | PROVIDERS: PCP Family Medicine; Visit Provider Psychiatry & Neurology Neurology | DX: G20.A1 Parkinson's disease without dyskinesia, without mention of fluctuations (principal); J43.2 Centrilobular emphysema; Z99.81 Dependence on supplemental oxygen | CPT/HCPCS: 99212; 99213 ==

== ENCOUNTER → 2024-05-01 12:10 | Outpatient (BNVA) | payer OTHER, SELFPAY | PROVIDERS: PCP Family Medicine; Visit Provider Internal Medicine | DX: J43.2 Centrilobular emphysema (principal); I10 Essential (primary) hypertension; E78.5 Hyperlipidemia, unspecified; J98.4 Other disorders of lung; Z87.891 Personal history of nicotine dependence | CPT/HCPCS: 99214 ==

== ENCOUNTER → 2024-08-10 09:51 | Outpatient (BNVA) | payer OTHER, SELFPAY | PROVIDERS: PCP Family Medicine; Visit Provider Nurse Practitioner Family | DX: J43.2 Centrilobular emphysema (principal); Z87.891 Personal history of nicotine dependence | CPT/HCPCS: 99212 ==

== ENCOUNTER → 2024-09-05 12:34 | Outpatient (BNVA) | payer OTHER, SELFPAY | PROVIDERS: PCP Family Medicine; Visit Provider Psychiatry & Neurology Neurology | DX: G20.A1 Parkinson's disease without dyskinesia, without mention of fluctuations (principal) | CPT/HCPCS: 99212 ==

== ENCOUNTER → 2025-04-01 10:12 | Outpatient (BNVA) | payer OTHER, SELFPAY | PROVIDERS: PCP Family Medicine; Visit Provider Specialist | DX: G20.A1 Parkinson's disease without dyskinesia, without mention of fluctuations (principal) | CPT/HCPCS: 96116; 99215 ==

== ENCOUNTER → 2025-05-01 09:38 | Outpatient (BNVA) | payer OTHER, SELFPAY | PROVIDERS: PCP Family Medicine; Visit Provider Internal Medicine | DX: E78.5 Hyperlipidemia, unspecified (principal); I10 Essential (primary) hypertension; J44.9 Chronic obstructive pulmonary disease, unspecified; J98.4 Other disorders of lung; Z79.82 Long term (current) use of aspirin; Z86.73 Personal history of transient ischemic attack (TIA), and cerebral infarction without residual deficits; Z87.891 Personal history of nicotine dependence | CPT/HCPCS: 99213 ==